=== PATIENT | male | born 1995 | race American Indian/Alaskan Native ===

== ENCOUNTER 2018-09-18 01:59 | Inpatient (IN) | payer MEDICAID ==
[2018-09-18 02:04] VITALS: BMI 27.3
--- NOTE | 2018-09-18 02:15 | ED PDOC ---
Arrival/HPI - General Historian: Patient - History of Present Illness Narrative History of Present Illness (Text): 09/18/18 02:12 22 year old male, with no significant past medical history, who presents to the emergency department agitated and anxious. Patient states he "feels like he;'s going to explode." patient states his anxiety is out of control. Patient is able to reason, but feels like medication would help his current state of aggression. Patient has no physic any complaints at this time. Time/Duration: Prior to Arrival Symptom Onset: Gradual Symptom Course: Unchanged Activities at Onset: Light Context: Home <Darin Thomason - Last Filed: 09/18/18 06:58> <Aman Robbins - Last Filed: 09/18/18 10:39> - General Time Seen by Provider: 09/18/18 02:06 Past Medical History - Provider Review Nursing Documentation Reviewed: Yes - Infectious Disease Hx of Infectious Diseases: None - Cardiac Hx Cardiac Disorders: No Hx Hypertension: Yes (untreated) - Pulmonary Hx Tuberculosis: No - Neurological HX Cerebrovascular Accident: No Hx Seizures: No - Hematological/Oncological Hx Cancer: No - Genitourinary/Gynecological Hx Sexually Transmitted Diseases: No - Psychiatric Hx Depression: Yes Hx Emotional Abuse: No Hx Sexual Abuse: No Hx Substance Use: Yes - Anesthesia Hx Anesthesia: No <Darin Thomason - Last Filed: 09/18/18 06:58> Family/Social History - Physician Review Nursing Documentation Reviewed: Yes Family/Social History: Unknown Family HX Smoking Status: Light Smoker < 10 Cigarettes Daily Hx Alcohol Use: Yes Hx Substance Use: Yes <Darin Thomason - Last Filed: 09/18/18 06:58> Allergies/Home Meds <Darin Thomason - Last Filed: 09/18/18 06:58> <Aman Robbins - Last Filed: 09/18/18 10:39> Allergies/Adverse Reactions: Allergies No Known Allergies Allergy (Verified 09/18/18 02:16) Review of Systems - Physician Review All systems were reviewed & negative as marked: Yes - Review of Systems Constitutional: Normal Eyes: Normal ENT: Normal Respiratory: Normal. absent: SOB, Cough Cardiovascular: Normal. absent: Chest Pain Gastrointestinal: Normal. absent: Abdominal Pain, Diarrhea, Nausea, Vomiting Genitourinary Male: Normal. absent: Dysuria, Frequency, Hematuria Musculoskeletal: Normal. absent: Back Pain, Neck Pain Skin: Normal. absent: Rash Neurological: Normal. absent: Headache, Dizziness Endocrine: Normal Hemo/Lymphatic: Normal Psychiatric: Anxiety <Darin Thomason - Last Filed: 09/18/18 06:58> Physical Exam - Physical Exam Narrative Physical Exam (Text): 09/18/18 02:15 Gen: VS reviewed, alert, well developed, well nourished, nontoxic, mild distress. ENT: normal pharynx. Eye: EOMI, PERRL. Neck: no JVD, supple, no adenopathy. CV: regular rate, regular rhythm, no rubs, no murmur, no gallops, S1, S2, pulses equal and strong. Pulm: no distress, clear to auscultation, no wheeze, no rhonchi, breath sounds equal, no rales. Abd: soft, nontender, no guarding, no rebound, no rigidity, normal bowel sounds. Ext: no edema. Skin: good color, no rash, no cyanosis. Psych: agitated, anxious, responds appropriately to questions, normal affect. Neuro: oriented x 3, CN2-12 intact grossly, motor intact, sensation intact. <Darin Thomason - Last Filed: 09/18/18 06:58> Vital Signs Temp Pulse BP Pulse Ox 09/18/18 02:15 98.6 F 98 H 150/79 22 L <Aman Robbins - Last Filed: 09/18/18 10:39> Medical Decision Making ED Course and Treatment: 09/18/18 02:16 Impression: 22 year old male presents to the emergency department agitated and anxious. Plan: -- Ativan -- Geoden -- Reassess and disposition Progress Notes: 09/18/18 05:22 cxr reviwed from and not necessary to repeat for this psychiatric visit and not indicated for medical evaluation 09/18/18 06:20 patient is medically stable for psych eval, admit, transfer if needed 09/18/18 06:[address] robbins - EKG Interpretation EKG Interpretation (Text): 09/18/18 06:22 0602: sinus sean at 48 bpm, nml qrs, no acute sttw abn Interpreted by ED Physician: Yes - Medication Orders Current Medication Orders: Lorazepam (Ativan) 2 mg IM ONCE ONE; Protocol Stop: 09/18/18 02:09 Discontinued Medications Ziprasidone (Geodon Inj) 20 mg IM STAT STA; Protocol Stop: 09/18/18 02:07 <Darin Thomason - Last Filed: 09/18/18 06:58> ED Course and Treatment: 09/18/18 07:04 Patient was turned over to mo by , waiting for crisis evaluation and disposition. No problems reported overnight. 09/18/18 10:39 Seen and evaluated by crisis and patient will be admitted to the psychiatric floor for schizophrenia. - Lab Interpretations Lab Results: 09/18/18 05:45 09/18/18 05:45 Lab Results 09/18/18 05:45: Alcohol, Quantitative < 10 09/18/18 05:45: Salicylates < 1 L, Acetaminophen < 10.0 L 09/18/18 05:45: Sodium 140, Potassium 3.8, Chloride 104, Carbon Dioxide 26, Anion Gap 13, BUN 9, Creatinine 1.0, Est GFR ( Amer) > 60, Est GFR (Non- Af Amer) > 60, Random Glucose 94, Calcium 9.2, Total Bilirubin 0.4, AST 32, ALT 28, Alkaline Phosphatase 66, Total Protein 7.6, Albumin 4.3, Globulin 3.3, Albumin/Globulin Ratio 1.3 09/18/18 05:45: WBC 8.6, RBC 4.71, Hgb 13.7 L, Hct 39.9 L, MCV 84.7, MCH 29.1, MCHC 34.3, RDW 13.0, Plt Count 226, MPV 9.7, Gran % 54.2, Lymph % (Auto) 31.6, Gaston % (Auto) 12.1 H, Eos % (Auto) 1.9, Baso % (Auto) 0.2, Gran # 4.68, Lymph # (Auto) 2.7, Gaston # (Auto) 1.0 H, Eos # (Auto) 0.2, Baso # (Auto) 0.02 - Medication Orders Current Medication Orders: Discontinued Medications Lorazepam (Ativan) 2 mg IM ONCE ONE; Protocol Stop: 09/18/18 02:09 Last Admin: 09/18/18 02:08 Dose: 2 mg IM Administration Charges Document 09/18/18 02:08 AD (Rec: 09/18/18 02:16 AD [id number]) Injection Site MAR Injection Site Left Deltoid Charges for Administration # of IM Administrations 1 Ziprasidone (Geodon Inj) 20 mg IM STAT STA; Protocol Stop: 09/18/18 02:07 Last Admin: 09/18/18 02:06 Dose: 20 mg IM Administration Charges Document 09/18/18 02:06 AD (Rec: 09/18/18 02:17 AD [id number]) Injection Site MAR Injection Site Right Deltoid Charges for Administration # of IM Administrations 1 <Aman Robbins - Last Filed: 09/18/18 10:39> - Scribe Statement The provider has reviewed the documentation as recorded by the Scribe Kelsie James All medical record entries made by the Scribe were at my direction and personally dictated by me. I have reviewed the chart and agree that the record accurately reflects my personal performance of the history, physical exam, medical decision making, and the department course for this patient. I have also personally directed, reviewed, and agree with the discharge instructions and disposition. <Darin Thomason - Last Filed: 09/18/18 06:58> Disposition/Present on Arrival - Present on Arrival Any Indicators Present on Arrival: No History of DVT/PE: No History of Uncontrolled Diabetes: No Urinary Catheter: No History Surgical Site Infection Following: None - Disposition Have Diagnosis and Disposition been Completed?: Yes <Darin Thomason - Last Filed: 09/18/18 06:58> - Present on Arrival Any Indicators Present on Arrival: No History of DVT/PE: No History of Uncontrolled Diabetes: No Urinary Catheter: No History of Decub. Ulcer: No - Disposition Have Diagnosis and Disposition been Completed?: Yes Disposition Time: 10:39 Patient Plan: Admission <Aman Robbins - Last Filed: 09/18/18 10:39> - Disposition Diagnosis: Psychosis, Schizophrenia Disposition: HOSPITALIZED Patient Problems: Current Active Problems Problem Status Onset Aggressive behavior Acute Condition: FAIR
[2018-09-18 06:02] LABS: BASO # 0.02 K/mm3 (0.0-2.0); BASO % 0.2 % (0.0-3.0); EOS # 0.2 (0.0-0.7); EOS % 1.9 % (1.5-5.0); GRAN # 4.68 (1.4-6.5); GRAN % 54.2 % (50.0-68.0); HEMOGLOBIN 13.7 g/dL (14.0-18.0); LYMPH # 2.7 (1.2-3.4); LYMPH % 31.6 % (22.0-35.0); MEAN CELL VOLUME 84.7 fl (80.0-105.0); MEAN CORPUSCULAR HEMOGLOBIN 29.1 pg (25.0-35.0); MEAN CORPUSCULAR HGB CONC 34.3 g/dl (31.0-37.0); MEAN PLATELET VOLUME 9.7 fl (7.0-11.0); MONO % 12.1 % (1.0-6.0); RBC 4.71 10^6/uL (3.5-6.1); WHITE BLOOD COUNT 8.6 10^3/uL (4.5-11.0)
[2018-09-18 06:08] LABS: ACETAMINOPHEN < 10.0 ug/ml (10.0-20.0); SALICYLATE < 1 mg/dL (2.0-20.0)
[2018-09-18 06:23] LABS: ALB/GLOB RATIO 1.3 (1.1-1.8); ALBUMIN 4.3 g/dL (3.0-4.8); ALT/SGPT 28 U/L (7-56); AST/SGOT 32 U/L (17-59); BLOOD UREA NITROGEN 9 mg/dL (7-21); CALCIUM 9.2 mg/dL (8.4-10.5); GFR NON-AFRICAN AMERICAN > 60
[2018-09-18 08:28] LABS: URINE BILIRUBIN NEGATIVE (NEGATIVE); URINE BLOOD NEGATIVE (NEGATIVE); URINE GLUCOSE (UA) NEGATIVE (NEGATIVE); URINE LEUKOCYTE ESTERASE SMALL Leu/uL (NEGATIVE); URINE PROTEIN NEGATIVE mg/dL (<30 mg/dL); URINE UROBILINOGEN 0.2 E.U./dL (<1 E.U./dL)
[2018-09-18 08:30] LABS: URINE APPEARANCE CLEAR (CLEAR); URINE COLOR YELLOW (YELLOW)
[2018-09-18 08:49] LABS: BARBITURATES, UR NEGATIVE (NEGATIVE); BENZODIAZEPINES, UR NEGATIVE (NEGATIVE); OPIATES, UR NEGATIVE (NEGATIVE); PHENCYCLIDINE, UR NEGATIVE (NEGATIVE); URINE BACTERIA FEW (NEG); URINE EPITHELIAL CELLS 0 - 2 /hpf (0-5); URINE RBC NEGATIVE /hpf (0-2)
[2018-09-18 11:31] VITALS: O2SAT 98
--- NOTE | 2018-09-18 15:34 | CARD ---
APPROVED REPORT Date of service: 09/18/2018 EKG Measurement Heart [id number] <Conclusion> Sinus bradycardia Rightward axis Otherwise normal ECG
[2018-09-18] MEDS ORDERED: Influenza Vaccine 60 mcg/0.5 mL SYR (4YR UP) IM ONE (17:14)
[2018-09-18] MEDS ORDERED: Alum-Mag Hydrox-Simethicone Susp (30 mL) PO PRN ×2 (18:15→18:17)
[2018-09-18 19:42] LABS: HDL CHOLESTEROL 47 mg/dL (29-60)
[2018-09-18 19:52] LABS: LDL CHOLESTEROL 95 mg/dL (0-129)
[2018-09-19 07:55] LABS: BASO # 0.01 K/mm3 (0.0-2.0); BASO % 0.2 % (0.0-3.0); EOS # 0.3 (0.0-0.7); EOS % 4.3 % (1.5-5.0); GRAN # 3.16 (1.4-6.5); GRAN % 51.8 % (50.0-68.0); HEMOGLOBIN 13.4 g/dL (14.0-18.0); LYMPH # 2.2 (1.2-3.4); LYMPH % 35.2 % (22.0-35.0); MEAN CELL VOLUME 86.3 fl (80.0-105.0); MEAN CORPUSCULAR HEMOGLOBIN 28.2 pg (25.0-35.0); MEAN CORPUSCULAR HGB CONC 32.7 g/dl (31.0-37.0); MEAN PLATELET VOLUME 10.2 fl (7.0-11.0); MONO # 0.5 (0.1-0.6); MONO % 8.5 % (1.0-6.0); RBC 4.75 10^6/uL (3.5-6.1); RED CELL DISTRIBUTION WIDTH 13.1 % (11.5-14.5); WHITE BLOOD COUNT 6.1 10^3/uL (4.5-11.0)
[2018-09-19 08:04] LABS: ALB/GLOB RATIO 1.3 (1.1-1.8); ALBUMIN 4.1 g/dL (3.0-4.8); ALT/SGPT 28 U/L (7-56); AST/SGOT 34 U/L (17-59); BLOOD UREA NITROGEN 13 mg/dL (7-21); CALCIUM 9.3 mg/dL (8.4-10.5); GFR NON-AFRICAN AMERICAN > 60
[2018-09-19 08:18] LABS: FREE T4 0.78 ng/dL (0.78-2.19)
--- NOTE | 2018-09-19 10:00 | PCM.PYCHPN ---
Psychiatric Progress Note - Psychiatric Progress Note Patient seen today, length of contact: 35 min Problems Identified/Issues Discussed: Please refer to Dr. Raza's H&P on 08/23/18 for full assessment. Patient was admitted to this unit less than a month ago from 08/22/18-08/23/18. He was discha rged AMA after submitting a 48 hour notice and found not committable by [facility]. Patient was given rx for risperdal 1 mg po TID and trazodone 50 mg HS. Pt is a 22 year old single AA male with history of schizophrenia, [place] [facility] [place] who was BIB EMS to our ER with complaints of depression, anxiety and aggression. During interview in the ER he was found to be disorganized. Mother was contacted for collateral and she confirms that pt hears voices that tell him "negative things" such as "no one loves you, you are no good". He received geodon 20mg and ativan 2mg while in the ER. As noted above, patient saw a psychiatrist last Thursday [place] [facility] [place] and received a script however mother did not know medication names. During our interview at bedside this morning patient indicates that he received a script for the same medications he was [place] [facility] [place]. He also reports that he was compliant with his medications but still continued to feel anxious, dee and depressed. Patient is calm with blunt/flat affect during my questioning. Though he denies current hallucinations he is preoccupied, withdrawn, quiet and guarded. Responses are logical but they are very superficial and verity is questionable due to patient's poor focus and engagement. He remains unpredictable with poor I/J. Diagnostic Results: Schizophrenia Mood Disorder NOS r/o Schizoaffective Disorder Mental Status Examination - Cognitive Function Orientation: Person, Place Memory: Impaired Attention: Poor Concentration: Poor Association: Loose Fund of Knowledge: Poor - Mood Mood: Depressed, Anxious - Affect Affect: Constricted, Blunted, Flat - Speech Speech: Soft - Formal Thought Process Formal Thought Process: Hallucinations, Delusions, Paranoia, Loosening of as sociations - Suicidal Ideation Suicidal Ideation: No - Homicidal Ideation Homicidal Ideation: No Goal/Treatment Plan - Goal/Treatment Plan Need for Continued Stay: Remain at risks for inpatient hospitalization (Patient reports smoking ~2 cigarettes daily), Severe depression anxiety, Discharge may exacerbated symptoms, Severe functional impairment Progress Toward Problem(s) and Goals/Treatment Plan: * group, milieu and supportive tx * Increase to Risperdal 1 mg po AMHS for disorganization. Patient failed outpatient level of care at dose of Risperdal 1 mg HS. * Cogentin 1 mg HS for EPS prophylaxis * Trazodone 50 mg po HS, for depression and off-label for insomnia * Vitals reviewed and noted below: Selected Entries 09/18/18 09/18/18 09/18/18 11:29 18:34 18:58 Temperature 97.9 F Pulse Rate 60 81 80 Respiratory 18 Rate Blood Pressure 115/63 128/66 109/64 * Floor labs noted below: Laboratory Results - last 24 hr 09/18/18 09/19/18 09/19/18 05:45 07:00 07:00 WBC 6.1 D RBC 4.75 Hgb 13.4 L Hct 41.0 L MCV 86.3 MCH 28.2 MCHC 32.7 RDW 13.1 Plt Count 205 MPV 10.2 Gran % 51.8 Lymph % (Auto) 35.2 H Long % (Auto) 8.5 H Eos % (Auto) 4.3 Baso % (Auto) 0.2 Gran # 3.16 Lymph # (Auto) 2.2 Long # (Auto) 0.5 Eos # (Auto) 0.3 Baso # (Auto) 0.01 Sodium 139 Potassium 4.2 Chloride 105 Carbon Dioxide 26 Anion Gap 12 BUN 13 Creatinine 1.0 Est GFR ( Amer) > 60 Est GFR (Non-Af Amer) > 60 Random Glucose 102 Calcium 9.3 Total Bilirubin 0.4 AST 34 ALT 28 Alkaline Phosphatase 70 Total Protein 7.3 Albumin 4.1 Globulin 3.1 Albumin/Globulin Ratio 1.3 Triglycerides 38 Cholesterol 147 LDL Cholesterol Direct 95 HDL Cholesterol 47 Free T4 TSH 3rd Generation 09/19/18 07:00 WBC RBC Hgb Hct MCV MCH MCHC RDW Plt Count MPV Gran % Lymph % (Auto) Long % (Auto) Eos % (Auto) Baso % (Auto) Gran # Lymph # (Auto) Long # (Auto) Eos # (Auto) Baso # (Auto) Sodium Potassium Chloride Carbon Dioxide Anion Gap BUN Creatinine Est GFR ( Amer) Est GFR (Non-Af Amer) Random Glucose Calcium Total Bilirubin AST ALT Alkaline Phosphatase Total Protein Albumin Globulin Albumin/Globulin Ratio Triglycerides Cholesterol LDL Cholesterol Direct HDL Cholesterol Free T4 0.78 TSH 3rd Generation 0.99 ER LABS AND STUDIES NOTED BELOW PLEASE REFER TO DR. BEEBE'S ER REPORT FOR PHYSICAL EXAM AND FINDINGS INCLUDING ROS 09/18/18 05:45: Alcohol, Quantitative < 10 09/18/18 05:45: Salicylates < 1 L, Acetaminophen < 10.0 L 09/18/18 05:45: Sodium 140, Potassium 3.8, Chloride 104, Carbon Dioxide 26, Anion Gap 13, BUN 9, Creatinine 1.0, Est GFR ( Amer) > 60, Est GFR (Non- Af Amer) > 60, Random Glucose 94, Calcium 9.2, Total Bilirubin 0.4, AST 32, ALT 28, Alkaline Phosphatase 66, Total Protein 7.6, Albumin 4.3, Globulin 3.3, Albumin/Globulin Ratio 1.3 09/18/18 05:45: WBC 8.6, RBC 4.71, Hgb 13.7 L, Hct 39.9 L, MCV 84.7, MCH 29.1, MCHC 34.3, RDW 13.0, Plt Count 226, MPV 9.7, Gran % 54.2, Lymph % (Auto) 31.6, Long % (Auto) 12.1 H, Eos % (Auto) 1.9, Baso % (Auto) 0.2, Gran # 4.68, Lymph # (Auto) 2.7, Long # (Auto) 1.0 H, Eos # (Auto) 0.2, Baso # (Auto) 0.02 09/18/18 05:22 cxr reviwed from and not necessary to repeat for this psychiatric visit and not indicated for medical evaluation 09/18/18 06:20 patient is medically stable for psych eval, admit, transfer if needed EKG Interpretation 09/18/18 06:22 0602: sinus sean at 48 bpm, nml qrs, no acute sttw abn Estimated Date of D/C: 09/24/18 - Smoking Cessation Smoking Cessation Initiated: No Reason for not providing: Patient was counseled on morbidity/mortality risks and still refused
--- NOTE | 2018-09-19 14:37 | CON ---
DATE OF CONSULTATION: 09/19/2018 HISTORY OF PRESENT ILLNESS: I saw him on the psychiatric floor. He was resting in bed. I was called to take a look at him medically. He is a 22-year-old man,who presented to the emergency room very agitated, anxious, feels like he is going to explode. His anxiety is out of control. He is looking for medication to help this. He is very aggressive. No other issues. He just does not feel good. He also looks very intense. PAST MEDICAL HISTORY: Hypertension, depression, substance abuse. FAMILY HISTORY: Hypertension in the family. SOCIAL HISTORY: Smokes cigarettes, alcohol, does substance abuse. ALLERGIES: NO KNOWN DRUG ALLERGIES. REVIEW OF SYSTEMS: No acute vision or hearing changes. No sore throat. No chest pain or palpitations. No shortness of breath or cough. No abdominal pain, nausea, vomiting, constipation, or diarrhea. No problems urinating. No neck pain. No back pain. No skin issues that he knows of. No headache or dizziness. PHYSICAL EXAMINATION: GENERAL: He is very anxious. He is very stressed. He looks very tense, looks like he is panicky. VITAL SIGNS: He has 98.6 temp, 98 pulse, 150/79 blood pressure, 22 respiratory rate. HEENT: Head is atraumatic, normocephalic. Extraocular muscles are intact. Throat is moist. NECK: Supple. HEART: Regular rate. LUNGS: Decreased breath sounds, but clear to auscultation bilaterally. ABDOMEN: Soft, nontender. Positive bowel sounds. No guarding. No rebound. No CVA tenderness. EXTREMITIES: No edema. He can move all 4 extremities. SKIN: Intact that I could tell. LYMPHS: Thyroid midline. No palpable appreciable lymphadenopathy. NEUROLOGIC: Cranial nerves II through XII grossly intact. He smiles. He can close his eyes tight. He can stick out his tongue midline. He can squeeze my fingers bilaterally, put his arms over his head. He can follow my finger with an age pattern with his vision. Neurologically, he seems pretty intact. LABORATORY DATA: He had tests done. He had a urine drug screen, which was normal. He had a urine test, which showed small. Sodium 129, potassium 4.2, BUN 13, creatinine 1, GFR is greater than 60, sugar is 102, calcium is 9.3. Total bili is 0.4, AST is 34, ALT is 28, and alk phos 70. Total protein is 7.3. Albumin is 4.1. Triglycerides are 38, cholesterol is 147, LDL is 95, HDL is 47. TSH is 0.99. White count 6.1, hemoglobin 30.4, hematocrit 41, and platelets are 205. ASSESSMENT AND PLAN: His blood pressure, he came in with 150/79, now it is 124/73, was 109/64. We will keep an eye on his blood pressure. He has some anxiety issues. Questionable history of schizophrenia. Hypertension when he came in, it is now normal, we will keep an eye on that. I will see him medically and will follow. Thank you very much for the consult. Hopefully, he will improve. Jorge Crabtree DO
--- NOTE | 2018-09-20 03:27 | PCM.BM ---
<Lio Pradhan - Last Filed: 09/20/18 03:24> Treatment Plan Problems - Problems identified on initial assessmt Social Isolation Date Initiated: 09/18/18 Time Initiated: 17:00 Assessment reference: NA Status: Active Priority: 1 Medication nonadherence Date Initiated: 09/18/18 Time Initiated: 17:00 Assessment reference: NA Status: Active Priority: 2 Command/Auditory Hallucinations Date Initiated: 09/18/18 Time Initiated: 17:00 Assessment reference: NA Status: Active Priority: 3 Visual Hallucinations Date Initiated: 09/18/18 Time Initiated: 17:00 Assessment reference: NA Status: Active Priority: 4 Altered Thought Process Date Initiated: 09/18/18 Time Initiated: 17:00 Assessment reference: NA Status: Active Priority: 5 Impaired Communication Date Initiated: 09/18/18 Time Initiated: 17:00 Assessment reference: NA Status: Active Priority: 6 Chronic Low Self Esteem Date Initiated: 09/18/18 Time Initiated: 17:00 Assessment reference: NA Status: Active Priority: 7 Ineffective Coping Date Initiated: 09/18/18 Time Initiated: 17:00 Assessment reference: NA Status: Active Priority: 8 Self Care Deficit Date Initiated: 09/18/18 Time Initiated: 17:00 Assessment reference: NA Status: Active Priority: 9 Ineffective Family Coping: Compromised Date Initiated: 09/18/18 Time Initiated: 17:00 Assessment reference: NA Status: Active Priority: 10 Self Concept Disturbance Date Initiated: 09/18/18 Time Initiated: 17:00 Assessment reference: NA Status: Active Priority: 11 Defensive Coping Date Initiated: 09/18/18 Time Initiated: 17:00 Assessment reference: NA Status: Active Priority: 12 High Risk: Violence Date Initiated: 09/18/18 Time Initiated: 17:00 Assessment reference: NA Status: Active Priority: 13 Treatment assets and liabiliti Patient Assests: cooperative, self-reliant, ADL independent, negotiates basic needs, good interpersonal skills Patient Liabilities: financial problems, other (Poor insight) - Milieu Protocol Maintain good personal hygiene: daily Encourage regular showers, every shift Remind patient to perform daily oral care, every shift Assist patient to perform ADL's Maintain personal safety: every shift Educate patient to report safety concerns to staff, every shift Monitor environment for contraband/sharps Medication safety: Monitor for expected outcome, potential side effects: every shift, Assess barriers to learning: every shift, Assess readiness for medication education: every shift Milieu Narrative: * group, milieu and supportive tx * Increase to Risperdal 1 mg po AMHS for disorganization. Patient failed outpatient level of care at dose of Risperdal 1 mg HS. * Cogentin 1 mg HS for EPS prophylaxis * Trazodone 50 mg po HS, for depression and off-label for insomnia * Vitals reviewed and noted below: Selected Entries 09/18/18 09/18/18 09/18/18 11:29 18:34 18:58 Temperature 97.9 F Pulse Rate 60 81 80 Respiratory 18 Rate Blood Pressure 115/63 128/66 109/64 * Floor labs noted below: Laboratory Results - last 24 hr 09/18/18 09/19/18 09/19/18 05:45 07:00 07:00 WBC 6.1 D RBC 4.75 Hgb 13.4 L Hct 41.0 L MCV 86.3 MCH 28.2 MCHC 32.7 RDW 13.1 Plt Count 205 MPV 10.2 Gran % 51.8 Lymph % (Auto) 35.2 H [place] % (Auto) 8.5 H Eos % (Auto) 4.3 Baso % (Auto) 0.2 Gran # 3.16 Lymph # (Auto) 2.2 [place] # (Auto) 0.5 Eos # (Auto) 0.3 Baso # (Auto) 0.01 Sodium 139 Potassium 4.2 Chloride 105 Carbon Dioxide 26 Anion Gap 12 BUN 13 Creatinine 1.0 Est GFR ( Amer) > 60 Est GFR (Non-Af Amer) > 60 Random Glucose 102 Calcium 9.3 Total Bilirubin 0.4 AST 34 ALT 28 Alkaline Phosphatase 70 Total Protein 7.3 Albumin 4.1 Globulin 3.1 Albumin/Globulin Ratio 1.3 Triglycerides 38 Cholesterol 147 LDL Cholesterol Direct 95 HDL Cholesterol 47 Free T4 TSH 3rd Generation 09/19/18 07:00 WBC RBC Hgb Hct MCV MCH MCHC RDW Plt Count MPV Gran % Lymph % (Auto) [place] % (Auto) Eos % (Auto) Baso % (Auto) Gran # Lymph # (Auto) [place] # (Auto) Eos # (Auto) Baso # (Auto) Sodium Potassium Chloride Carbon Dioxide Anion Gap BUN Creatinine Est GFR ( Amer) Est GFR (Non-Af Amer) Random Glucose Calcium Total Bilirubin AST ALT Alkaline Phosphatase Total Protein Albumin Globulin Albumin/Globulin Ratio Triglycerides Cholesterol LDL Cholesterol Direct HDL Cholesterol Free T4 0.78 TSH 3rd Generation 0.99 ER LABS AND STUDIES NOTED BELOW PLEASE REFER TO DR. BEEBE'S ER REPORT FOR PHYSICAL EXAM AND FINDINGS INCLUDING ROS 09/18/18 05:45: Alcohol, Quantitative < 10 09/18/18 05:45: Salicylates < 1 L, Acetaminophen < 10.0 L 09/18/18 05:45: Sodium 140, Potassium 3.8, Chloride 104, Carbon Dioxide 26, Anion Gap 13, BUN 9, Creatinine 1.0, Est GFR ( Amer) > 60, Est GFR (Non- Af Amer) > 60, Random Glucose 94, Calcium 9.2, Total Bilirubin 0.4, AST 32, ALT 28, Alkaline Phosphatase 66, Total Protein 7.6, Albumin 4.3, Globulin 3.3, Albumin/Globulin Ratio 1.3 09/18/18 05:45: WBC 8.6, RBC 4.71, Hgb 13.7 L, Hct 39.9 L, MCV 84.7, MCH 29.1, MCHC 34.3, RDW 13.0, Plt Count 226, MPV 9.7, Gran % 54.2, Lymph % (Auto) 31.6, [place] % (Auto) 12.1 H, Eos % (Auto) 1.9, Baso % (Auto) 0.2, Gran # 4.68, Lymph # (Auto) 2.7, [place] # (Auto) 1.0 H, Eos # (Auto) 0.2, Baso # (Auto) 0.02 09/18/18 05:22 cxr reviwed from and not necessary to repeat for this psychiatric visit and not indicated for medical evaluation 09/18/18 06:20 patient is medically stable for psych eval, admit, transfer if needed EKG Interpretation 09/18/18 06:22 0602: sinus sean at 48 bpm, nml qrs, no acute sttw abn Family Contact Family involvement: Family/SO is involved Family contact: Patient agrees to contact Discharge/Continuing Care - Education Needs Education Needs: Patient Medication, Patient Diagnosis/Disease Process, Patient Coping Skills, Patient Anger Management skills, Patient Placement options, Patient Community resources, Patient Activities of Daily Living, Patient Pain, Patient Nutrition, Patient Uses of Medical Equipment, Patient Health Practices/Safety, Patient Personal Hygiene/Grooming, Patient Aftercare Safety Plan - Discharge Discharge Criteria: Tolerates medication w/o severe side effects - Treatment Team Participation Patient/Family/SO Statement: * group, milieu and supportive tx * Increase to Risperdal 1 mg po AMHS for disorganization. Patient failed outpatient level of care at dose of Risperdal 1 mg HS. * Cogentin 1 mg HS for EPS prophylaxis * Trazodone 50 mg po HS, for depression and off-label for insomnia * Vitals reviewed and noted below: Selected Entries 09/18/18 09/18/18 09/18/18 11:29 18:34 18:58 Temperature 97.9 F Pulse Rate 60 81 80 Respiratory 18 Rate Blood Pressure 115/63 128/66 109/64 * Floor labs noted below: Laboratory Results - last 24 hr 09/18/18 09/19/18 09/19/18 05:45 07:00 07:00 WBC 6.1 D RBC 4.75 Hgb 13.4 L Hct 41.0 L MCV 86.3 MCH 28.2 MCHC 32.7 RDW 13.1 Plt Count 205 MPV 10.2 Gran % 51.8 Lymph % (Auto) 35.2 H [place] % (Auto) 8.5 H Eos % (Auto) 4.3 Baso % (Auto) 0.2 Gran # 3.16 Lymph # (Auto) 2.2 [place] # (Auto) 0.5 Eos # (Auto) 0.3 Baso # (Auto) 0.01 Sodium 139 Potassium 4.2 Chloride 105 Carbon Dioxide 26 Anion Gap 12 BUN 13 Creatinine 1.0 Est GFR ( Amer) > 60 Est GFR (Non-Af Amer) > 60 Random Glucose 102 Calcium 9.3 Total Bilirubin 0.4 AST 34 ALT 28 Alkaline Phosphatase 70 Total Protein 7.3 Albumin 4.1 Globulin 3.1 Albumin/Globulin Ratio 1.3 Triglycerides 38 Cholesterol 147 LDL Cholesterol Direct 95 HDL Cholesterol 47 Free T4 TSH 3rd Generation 09/19/18 07:00 WBC RBC Hgb Hct MCV MCH MCHC RDW Plt Count MPV Gran % Lymph % (Auto) [place] % (Auto) Eos % (Auto) Baso % (Auto) Gran # Lymph # (Auto) [place] # (Auto) Eos # (Auto) Baso # (Auto) Sodium Potassium Chloride Carbon Dioxide Anion Gap BUN Creatinine Est GFR ( Amer) Est GFR (Non-Af Amer) Random Glucose Calcium Total Bilirubin AST ALT Alkaline Phosphatase Total Protein Albumin Globulin Albumin/Globulin Ratio Triglycerides Cholesterol LDL Cholesterol Direct HDL Cholesterol Free T4 0.78 TSH 3rd Generation 0.99 ER LABS AND STUDIES NOTED BELOW PLEASE REFER TO DR. BEEBE'S ER REPORT FOR PHYSICAL EXAM AND FINDINGS INCLUDING ROS 09/18/18 05:45: Alcohol, Quantitative < 10 09/18/18 05:45: Salicylates < 1 L, Acetaminophen < 10.0 L 09/18/18 05:45: Sodium 140, Potassium 3.8, Chloride 104, Carbon Dioxide 26, Anion Gap 13, BUN 9, Creatinine 1.0, Est GFR ( Amer) > 60, Est GFR (Non- Af Amer) > 60, Random Glucose 94, Calcium 9.2, Total Bilirubin 0.4, AST 32, ALT 28, Alkaline Phosphatase 66, Total Protein 7.6, Albumin 4.3, Globulin 3.3, Albumin/Globulin Ratio 1.3 09/18/18 05:45: WBC 8.6, RBC 4.71, Hgb 13.7 L, Hct 39.9 L, MCV 84.7, MCH 29.1, MCHC 34.3, RDW 13.0, Plt Count 226, MPV 9.7, Gran % 54.2, Lymph % (Auto) 31.6, [place] % (Auto) 12.1 H, Eos % (Auto) 1.9, Baso % (Auto) 0.2, Gran # 4.68, Lymph # (Auto) 2.7, [place] # (Auto) 1.0 H, Eos # (Auto) 0.2, Baso # (Auto) 0.02 09/18/18 05:22 cxr reviwed from and not necessary to repeat for this psychiatric visit and not indicated for medical evaluation 09/18/18 06:20 patient is medically stable for psych eval, admit, transfer if needed EKG Interpretation 09/18/18 06:22 0602: sinus sean at 48 bpm, nml qrs, no acute sttw abn <Padmini Dela Cruz - Last Filed: 09/21/18 08:36> Family Contact Family involvement: Famliy/SO not involved - Goals for Treatment Patient goals for treatment: "To learn how to cope with my feelings."
--- NOTE | 2018-09-20 13:36 | PCM.PYCHPN ---
Psychiatric Progress Note - Psychiatric Progress Note Patient seen today, length of contact: 35 min Patient Chief Complaint: "I was feeling overwhelmed, even though I was not overwhelmed, if you know what I mean, I want everything to stop, this is what I mean by suicide" Problems Identified/Issues Discussed: Suicide/ homicide prevention, past psychiatric h/o, current psychiatric symptoms, medical problems, risk/benefits and alternatives of medications, medi cations compliance, coping strategies, substance abuse h/o, relapse prevention, importance of follow up with psychiatrist and therapist, discharge plan. Medical Problems: pt is healthy pt was seen by medical team in ED Diagnostic Results: 09/19/18 07:00 09/19/18 07:00 Lab Results 09/19/18 07:00: RPR Nonreactive 09/19/18 07:00: Free T4 0.78, TSH 3rd Generation 0.99 09/19/18 07:00: Sodium 139, Potassium 4.2, Chloride 105, Carbon Dioxide 26, Anion Gap 12, BUN 13, Creatinine 1.0, Est GFR ( Amer) > 60, Est GFR (Non- Af Amer) > 60, Random Glucose 102, Calcium 9.3, Total Bilirubin 0.4, AST 34, ALT 28, Alkaline Phosphatase 70, Total Protein 7.3, Albumin 4.1, Globulin 3.1, Albumin/Globulin Ratio 1.3 09/19/18 07:00: WBC 6.1 D, RBC 4.75, Hgb 13.4 L, Hct 41.0 L, MCV 86.3, MCH 28.2, MCHC 32.7, RDW 13.1, Plt Count 205, MPV 10.2, Gran % 51.8, Lymph % (Auto) 35.2 H, [place] % (Auto) 8.5 H, Eos % (Auto) 4.3, Baso % (Auto) 0.2, Gran # 3.16, Lymph # (Auto) 2.2, [place] # (Auto) 0.5, Eos # (Auto) 0.3, Baso # (Auto) 0.01 09/18/18 08:10: Urine Opiates Screen Negative, Urine Methadone Screen Negative, Ur Barbiturates Screen Negative, Ur Phencyclidine Scrn Negative, Ur Amphetamines Screen Negative, U Benzodiazepines Scrn Negative, U Oth Cocaine Metabols N egative, U Cannabinoids Screen Negative 09/18/18 08:10: Urine Color Yellow, Urine Appearance Clear, Urine pH 6.0, Ur Specific [place] 1.020, Urine Protein Negative, Urine Glucose (UA) Negative, Urine Ketones Negative, Urine Blood Negative, Urine Nitrate Negative, Urine Bilirubin Negative, Urine Urobilinogen 0.2, Ur Leukocyte Esterase Small H, Urine RBC Negative, Urine WBC 10 - 15, Ur Epithelial Cells 0 - 2, Urine Bacteria Few 09/18/18 05:45: Hemoglobin A1c 5.1 09/18/18 05:45: Triglycerides 38, Cholesterol 147, LDL Cholesterol Direct 95, HDL Cholesterol 47 09/18/18 05:45: Alcohol, Quantitative < 10 09/18/18 05:45: Salicylates < 1 L, Acetaminophen < 10.0 L 09/18/18 05:45: Sodium 140, Potassium 3.8, Chloride 104, Carbon Dioxide 26, Anion Gap 13, BUN 9, Creatinine 1.0, Est GFR ( Amer) > 60, Est GFR (Non- Af Amer) > 60, Random Glucose 94, Calcium 9.2, Total Bilirubin 0.4, AST 32, ALT 28, Alkaline Phosphatase 66, Total Protein 7.6, Albumin 4.3, Globulin 3.3, Albumin/Globulin Ratio 1.3 09/18/18 05:45: WBC 8.6, RBC 4.71, Hgb 13.7 L, Hct 39.9 L, MCV 84.7, MCH 29.1, MCHC 34.3, RDW 13.0, Plt Count 226, MPV 9.7, Gran % 54.2, Lymph % (Auto) 31.6, [place] % (Auto) 12.1 H, Eos % (Auto) 1.9, Baso % (Auto) 0.2, Gran # 4.68, Lymph # (Auto) 2.7, [place] # (Auto) 1.0 H, Eos # (Auto) 0.2, Baso # (Auto) 0.02 Vital Signs Temp Pulse Resp BP Pulse Ox 09/20/18 07:20 98.5 F 53 L 18 109/50 L 09/19/18 16:21 76 118/64 09/19/18 07:21 97.7 F 64 20 124/73 09/18/18 18:58 80 109/64 09/18/18 18:34 81 128/66 09/18/18 11:29 97.9 F 60 18 115/63 98 09/18/18 02:15 98.6 F 98 H 150/79 22 L DSM 5 Symptoms Update: Pt is well known to this data analyst report writer/unit from the previous psych admission less than a month ago from 08/22/18-08/23/18. He was discharged AMA after submitting a 48 hour notice and found not committable by [facility]. Patient was given rx for risperdal 1 mg po TID and trazodone 50 mg HS. pt was seen at the treatment team meeting, pt presented to be disorganized, circumstantial and tangential. good personal hygiene, good ADLs, pt was superficially cooperative. pt seems to be unreliable historian due to his disorganized thoughts. Pt was referred by psychiatrist last Chin who was BIB EMS to our ER with complaints of depression, anxiety and aggression. During interview in the ER he was found to be disorganized. Mother was contacted for collateral and she confir ms that pt hears voices that tell him "negative things" such as "no one loves you, you are no good". He received geodon 20mg and ativan 2mg while in the ER. As noted above, patient saw a psychiatrist last Thursday at [facility] and received a script however mother did not know medication names. During our interview at the treatment team meeting pt said "I was feeling overwhelmed, even though I was not overwhelmed, I feel I could have better, I feel like I cannot reach my potential". He remains unpredictable with poor I/J. pt tolerates meds well, no side effects observed or reported. AIMS 0, no EPS. risperdal increased, wellbutrin started. Diagnostic Results: Schizophrenia Mood Disorder NOS r/o Schizoaffective Disorder Medication Change: Yes (risperdal increased and wellbutrin started.) Medical Record Reviewed: Yes Consults ordered or reviewed: medical consult was done in ED. pt reported being healthy Mental Status Examination - Cognitive Function Orientation: Person, Place Memory: Impaired Attention: Poor Concentration: Poor Association: Loose Fund of Knowledge: Poor - Mood Mood: Depressed, Anxious - Affect Affect: Constricted, Blunted, Flat - Speech Speech: Soft - Formal Thought Process Formal Thought Process: Hallucinations, Delusions, Paranoia, Loosening of associations - Suicidal Ideation Suicidal Ideation: No - Homicidal Ideation Homicidal Ideation: No Goal/Treatment Plan - Goal/Treatment Plan Need for Continued Stay: Remain at risks for inpatient hospitalization (Patient reports smoking ~2 cigarettes daily), Severe depression anxiety, Discharge may exacerbated symptoms, Severe functional impairment Progress Toward Problem(s) and Goals/Treatment Plan: group, milieu and supportive tx Increase to Risperdal 1 mg po tid for disorganization. Patient failed outpatient level of care at dose of Risperdal 1 mg HS. Cogentin 1 mg HS for EPS prophylaxis Trazodone 50 mg po HS, for depression and off-label for insomnia wellbutrin for concentration and depression SW evaluation collaterals from family Pt was educated about risk/benefits and alternatives of medications, coping strategies (safety plan, suicide prevention), relapse prevention, importance of follow up with psychiatrist and therapist, stay away from drugs/alcohol/smoking. Estimated Date of D/C: 09/24/18
--- NOTE | 2018-09-20 13:54 | PN ---
DATE: 09/20/2018 SUBJECTIVE: I saw him resting comfortably in bed. Overall, he tells me feeling okay. No acute problems this morning. He is on Cogentin, Desyrel, Maalox, Risperdal, and Tylenol. PHYSICAL EXAMINATION: VITAL SIGNS: 98.5 temperature, 53 pulse, 109/50 blood pressure, 18 respiratory rate. HEENT: Head atraumatic, normocephalic. HEART: Regular rate and rhythm. LUNGS: Decreased breath sounds, but clear. ABDOMEN: Soft. EXTREMITIES: No edema. He is eating a little bit. He has a 6.1 white count, 30.4 hemoglobin, 205 platelets. 139 sodium, potassium 4.2, BUN 30, creatinine , hemoglobin A1c is 5.1, calcium is 9.3, AST is 34, ALT is 20, alk phos 70. TSH is good at 0.99. Urine was clear. Toxicology was clear and nonreactive RPR. His blood pressure did well after the first day, it is now flat.. We will continue to watch medically, continue with aggressive psychiatric care, hopefully will improve. Jorge Crabtree DO MTDD
--- NOTE | 2018-09-21 11:49 | PN ---
DATE: 09/21/2018 SUBJECTIVE: I saw him resting comfortably in the psychiatric floor in bed. He is actually doing better, I believe on the other day. He is talking to me better. His face is brighter and smiling. He is eating well, comfortable. I think he is starting to turn a corner mentally. MEDICATIONS: He is on Cogentin, Desyrel, Maalox, Risperdal, Tylenol and Wellbutrin. PHYSICAL EXAMINATION: VITAL SIGNS: He has a 97.7 temperature, 62 pulse, 120/68 blood pressure, 20 respiratory rate. HEENT: Head is atraumatic, normocephalic. HEART: Regular rate. LUNGS: Clear to auscultation. ABDOMEN: Soft. EXTREMITIES: No edema. Last labs on the floor, he did well. Thyroid is good. ASSESSMENT AND PLAN: I do think he is starting to turn a corner and improve. He has been seen by Psychiatry. 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 I think he is starting to improve mentally and his blood pressure is good. Jorge Crabtree DO
--- NOTE | 2018-09-21 14:34 | PCM.PYCHPN ---
Psychiatric Progress Note - Psychiatric Progress Note Patient seen today, length of contact: 35 min Patient Chief Complaint: "I want to be feeling better and be not overwhelmed, by the way will you prescribe anything for overwhelming feelings?" Problems Identified/Issues Discussed: Suicide/ homicide prevention, past psychiatric h/o, current psychiatric sympto ms, medical problems, risk/benefits and alternatives of medications, medications compliance, coping strategies, substance abuse h/o, relapse prevention, importance of follow up with psychiatrist and therapist, discharge plan. Medical Problems: pt is healthy pt was seen by medical team in ED Diagnostic Results: 09/19/18 07:00 09/19/18 07:00 Lab Results 09/19/18 07:00: RPR Nonreactive 09/19/18 07:00: Free T4 0.78, TSH 3rd Generation 0.99 09/19/18 07:00: Sodium 139, Potassium 4.2, Chloride 105, Carbon Dioxide 26, Anion Gap 12, BUN 13, Creatinine 1.0, Est GFR ( Amer) > 60, Est GFR (Non- Af Amer) > 60, Random Glucose 102, Calcium 9.3, Total Bilirubin 0.4, AST 34, ALT 28, Alkaline Phosphatase 70, Total Protein 7.3, Albumin 4.1, Globulin 3.1, Albumin/Globulin Ratio 1.3 09/19/18 07:00: WBC 6.1 D, RBC 4.75, Hgb 13.4 L, Hct 41.0 L, MCV 86.3, MCH 28.2, MCHC 32.7, RDW 13.1, Plt Count 205, MPV 10.2, Gran % 51.8, Lymph % (Auto) 35.2 H, [place] % (Auto) 8.5 H, Eos % (Auto) 4.3, Baso % (Auto) 0.2, Gran # 3.16, Lymph # (Auto) 2.2, [place] # (Auto) 0.5, Eos # (Auto) 0.3, Baso # (Auto) 0.01 09/18/18 08:10: Urine Opiates Screen Negative, Urine Methadone Screen Negative, Ur Barbiturates Screen Negative, Ur Phencyclidine Scrn Negative, Ur Amphetamines Screen Negative, U Benzodiazepines Scrn Negative, U Oth Cocaine Metabols Negative, U Cannabinoids Screen Negative 09/18/18 08:10: Urine Color Yellow, Urine Appearance Clear, Urine pH 6.0, Ur Specific [place] 1.020, Urine Protein Negative, Urine Glucose (UA) Negative, Urine Ketones Negative, Urine Blood Negative, Urine Nitrate Negative, Urine Bilirubin Negative, Urine Urobilinogen 0.2, Ur Leukocyte Esterase Small H, Urine RBC Negative, Urine WBC 10 - 15, Ur Epithelial Cells 0 - 2, Urine Bacteria Few 09/18/18 05:45: Hemoglobin A1c 5.1 09/18/18 05:45: Triglycerides 38, Cholesterol 147, LDL Cholesterol Direct 95, HDL Cholesterol 47 09/18/18 05:45: Alcohol, Quantitative < 10 09/18/18 05:45: Salicylates < 1 L, Acetaminophen < 10.0 L 09/18/18 05:45: Sodium 140, Potassium 3.8, Chloride 104, Carbon Dioxide 26, Anion Gap 13, BUN 9, Creatinine 1.0, Est GFR ( Amer) > 60, Est GFR (Non- Af Amer) > 60, Random Glucose 94, Calcium 9.2, Total Bilirubin 0.4, AST 32, ALT 28, Alkaline Phosphatase 66, Total Protein 7.6, Albumin 4.3, Globulin 3.3, Albumin/Globulin Ratio 1.3 09/18/18 05:45: WBC 8.6, RBC 4.71, Hgb 13.7 L, Hct 39.9 L, MCV 84.7, MCH 29.1, MCHC 34.3, RDW 13.0, Plt Count 226, MPV 9.7, Gran % 54.2, Lymph % (Auto) 31.6, [place] % (Auto) 12.1 H, Eos % (Auto) 1.9, Baso % (Auto) 0.2, Gran # 4.68, Lymph # (Auto) 2.7, [place] # (Auto) 1.0 H, Eos # (Auto) 0.2, Baso # (Auto) 0.02 Vital Signs Temp Pulse Resp BP Pulse Ox 09/20/18 07:20 98.5 F 53 L 18 109/50 L 09/19/18 16:21 76 118/64 09/19/18 07:21 97.7 F 64 20 124/73 09/18/18 18:58 80 109/64 09/18/18 18:34 81 128/66 09/18/18 11:29 97.9 F 60 18 115/63 98 09/18/18 02:15 98.6 F 98 H 150/79 22 L DSM 5 Symptoms Update: Pt is well known to this entry writer/unit from the previous psych admission less than a month ago from 08/22/18-08/23/18. He was discharged AMA after submitting a 48 hour notice and found not committable by [facility]. Patient was given rx for risperdal 1 mg po TID and trazodone 50 mg HS. pt was seen today next to the nursing station, pt presented to be disorganized, circumstantial and tangential. good personal hygiene, good ADLs. pt has some positive changes, pt smiled to this entry writer, thought process is better organized. pt reported that "I want to be feeling better and be not overwhelmed, by the way will you prescribe anything for overwhelming feelings?", when was asked to clarify his overwhelming feeling pt went tangent... He remains unpredictable with poor I/J. pt tolerates meds well, no side effects observed or reported. AIMS 0, no EPS. risperdal increased, wellbutrin started. Diagnostic Results: Schizophrenia Mood Disorder NOS r/o Schizoaffective Disorder Medication Change: Yes (vistaril) Medical Record Reviewed: Yes Mental Status Examination - Cognitive Function Orientation: Person (He), Place Memory: Impaired Attention: Poor Concentration: Poor Association: Loose Fund of Knowledge: Poor - Mood Mood: Depressed, Anxious - Affect Affect: Constricted, Blunted, Flat - Speech Speech: Soft - Formal Thought Process Formal Thought Process: Hallucinations, Delusions, Paranoia, Loosening of associations - Suicidal Ideation Suicidal Ideation: No - Homicidal Ideation Homicidal Ideation: No Goal/Treatment Plan - Goal/Treatment Plan Need for Continued Stay: Remain at risks for inpatient hospitalization (Patient reports smoking ~2 cigarettes daily), Severe depression anxiety, Discharge may exacerbated symptoms, Severe functional impairment Progress Toward Problem(s) and Goals/Treatment Plan: group, milieu and supportive tx Risperdal 1 mg po tid for disorganization. Patient failed outpatient level of care at dose of Risperdal 1 mg HS. Cogentin 1 mg HS for EPS prophylaxis Trazodone 50 mg po HS, for depression and off-label for insomnia wellbutrin for concentration and depression vistaril 25mg po tid for anxiety SW evaluation collaterals from family Pt was educated about risk/benefits and alternatives of medications, coping strategies (safety plan, suicide prevention), relapse prevention, importance of follow up with psychiatrist and therapist, stay away from drugs/alcohol/smoking. Estimated Date of D/C: 09/24/18
[2018-09-21] MEDS ORDERED: Influenza Vaccine 60 mcg/0.5 mL SYR (4YR UP) IM ONE (15:21)
--- NOTE | 2018-09-22 08:41 | PN ---
DATE: 09/22/2018 SUBJECTIVE: I saw him in the Psychiatric Unit. He is actually out of bed in the day room. He is talking. He is smiling. He is doing much better. He is on Cogentin, Desyrel, Maalox, Risperdal, Tylenol, Vistaril and Wellbutrin. It is the first time I have seen him out of his bed, the first time I have seen him smiling, talking nicely. PHYSICAL EXAMINATION: VITAL SIGNS: He has a 97.8 temp, 58 pulse, 127/77 blood pressure, 20 respiratory rate. His blood pressure is good. HEENT: Head is atraumatic, normocephalic. HEART: Regular rate. LUNGS: Clear to auscultation. ABDOMEN: Soft. EXTREMITIES: No edema. I think he is doing much better than when he came in. LABORATORY DATA: His labs on 09/19/2018, he did well. ASSESSMENT AND PLAN: I do think he is starting to improve. He is telling me that he will be discharged tomorrow and I think he is on the right game plan. He works and goes to school. He knows what he wants to do. This is good. I encouraged him to eat, participate, follow psychiatric orders. We will follow checking his blood pressure. Rai Baires who I think is improved. Jorge Crabtree DO
--- NOTE | 2018-09-22 16:16 | PCM.PYCHPN ---
Psychiatric Progress Note - Psychiatric Progress Note Patient seen today, length of contact: 30min Patient Chief Complaint: "I feel better" Problems Identified/Issues Discussed: Suicide/ homicide prevention, past psychiatric h/o, current psychiatric symptoms, medical problems, risk/benefits and alternatives of medications, medications compliance, coping strategies, substance abuse h/o, relapse prevention, importance of follow up with psychiatrist and therapist, discharge plan. Medical Problems: pt is healthy pt was seen by medical team in ED Diagnostic Results: 09/19/18 07:00 09/19/18 07:00 Lab Results 09/19/18 07:00: RPR Nonreactive 09/19/18 07:00: Free T4 0.78, TSH 3rd Generation 0.99 09/19/18 07:00: Sodium 139, Potassium 4.2, Chloride 105, Carbon Dioxide 26, Anion Gap 12, BUN 13, Creatinine 1.0, Est GFR ( Amer) > 60, Est GFR (Non- Af Amer) > 60, Random Glucose 102, Calcium 9.3, Total Bilirubin 0.4, AST 34, ALT 28, Alkaline Phosphatase 70, Total Protein 7.3, Albumin 4.1, Globulin 3.1, Albumin/Globulin Ratio 1.3 09/19/18 07:00: WBC 6.1 D, RBC 4.75, Hgb 13.4 L, Hct 41.0 L, MCV 86.3, MCH 28.2, MCHC 32.7, RDW 13.1, Plt Count 205, MPV 10.2, Gran % 51.8, Lymph % (Auto) 35.2 H, [place] % (Auto) 8.5 H, Eos % (Auto) 4.3, Baso % (Auto) 0.2, Gran # 3.16, Lymph # (Auto) 2.2, [place] # (Auto) 0.5, Eos # (Auto) 0.3, Baso # (Auto) 0.01 09/18/18 08:10: Urine Opiates Screen Negative, Urine Methadone Screen Negative, Ur Barbiturates Screen Negative, Ur Phencyclidine Scrn Negative, Ur Amphetamines Screen Negative, U Benzodiazepines Scrn Negative, U Oth Cocaine Metabols Negative, U Cannabinoids Screen Negative 09/18/18 08:10: Urine Color Yellow, Urine Appearance Clear, Urine pH 6.0, Ur Specific [place] 1.020, Urine Protein Negative, Urine Glucose (UA) Negative, Urine Ketones Negative, Urine Blood Negative, Urine Nitrate Negative, Urine Bilirubin Negative, Urine Urobilinogen 0.2, Ur Leukocyte Esterase Small H, Urine RBC Negative, Urine WBC 10 - 15, Ur Epithelial Cells 0 - 2, Urine Bacteria Few 09/18/18 05:45: Hemoglobin A1c 5.1 09/18/18 05:45: Triglycerides 38, Cholesterol 147, LDL Cholesterol Direct 95, HDL Cholesterol 47 09/18/18 05:45: Alcohol, Quantitative < 10 09/18/18 05:45: Salicylates < 1 L, Acetaminophen < 10.0 L 09/18/18 05:45: Sodium 140, Potassium 3.8, Chloride 104, Carbon Dioxide 26, Anion Gap 13, BUN 9, Creatinine 1.0, Est GFR ( Amer) > 60, Est GFR (Non- Af Amer) > 60, Random Glucose 94, Calcium 9.2, Total Bilirubin 0.4, AST 32, ALT 28, Alkaline Phosphatase 66, Total Protein 7.6, Albumin 4.3, Globulin 3.3, Albumin/Globulin Ratio 1.3 09/18/18 05:45: WBC 8.6, RBC 4.71, Hgb 13.7 L, Hct 39.9 L, MCV 84.7, MCH 29.1, MCHC 34.3, RDW 13.0, Plt Count 226, MPV 9.7, Gran % 54.2, Lymph % (Auto) 31.6, [place] % (Auto) 12.1 H, Eos % (Auto) 1.9, Baso % (Auto) 0.2, Gran # 4.68, Lymph # (Auto) 2.7, [place] # (Auto) 1.0 H, Eos # (Auto) 0.2, Baso # (Auto) 0.02 Vital Signs Temp Pulse Resp BP Pulse Ox 09/20/18 07:20 98.5 F 53 L 18 109/50 L 09/19/18 16:21 76 118/64 09/19/18 07:21 97.7 F 64 20 124/73 09/18/18 18:58 80 109/64 09/18/18 18:34 81 128/66 09/18/18 11:29 97.9 F 60 18 115/63 98 09/18/18 02:15 98.6 F 98 H 150/79 22 L DSM 5 Symptoms Update: Pt is well known to this short story writer/unit from the previous psych admission less than a month ago from 08/22/18-08/23/18. He was discharged AMA after submitting a 48 hour notice and found not committable by [facility]. Patient was given rx for risperdal 1 mg po TID and trazodone 50 mg HS. pt was seen today next to the nursing station, pt presented to be more organized, reported "to feel better, I am ready for discharge tomorrow". good personal hygiene, good ADLs. pt has some positive changes, pt smiled to this short story writer, thought process is better organized. pt reported that his anxiety "better", reported to have good appetite and sleep. impulses are well controlled. pt tolerates meds well, no side effects observed or reported. AIMS 0, no EPS. As per staff patient is in good behavioral control, attends meetings, no agitation, no aggression. Diagnostic Results: Schizophrenia Mood Disorder NOS r/o Schizoaffective Disorder Medication Change: No (adjusted yesterday) Medical Record Reviewed: Yes Mental Status Examination - Cognitive Function Orientation: Person (He), Place Memory: Impaired Attention: Poor (better) Concentration: Poor (better) Association: Loose (better) Fund of Knowledge: Poor (better) - Mood Mood: Depressed ("I feel better") - Affect Affect: Constricted (more reactive, mood congruent) - Speech Speech: Appropriate - Formal Thought Process Formal Thought Process: Hallucinations (denied), Delusions (denied), Paranoia (denied), Loosening of associations (chornic) - Suicidal Ideation Suicidal Ideation: No - Homicidal Ideation Homicidal Ideation: No Goal/Treatment Plan - Goal/Treatment Plan Need for Continued Stay: Remain at risks for inpatient hospitalization (Patient reports smoking ~2 cigarettes daily), Severe depression anxiety, Discharge may exacerbated symptoms, Severe functional impairment Progress Toward Problem(s) and Goals/Treatment Plan: group, milieu and supportive tx Risperdal 1 mg po tid for disorganization. Patient failed outpatient level of care at dose of Risperdal 1 mg HS. Cogentin 1 mg HS for EPS prophylaxis Trazodone 50 mg po HS, for depression and off-label for insomnia wellbutrin for concentration and depression vistaril 25mg po tid for anxiety SW evaluation collaterals from family Pt was educated about risk/benefits and alternatives of medications, coping strategies (safety plan, suicide prevention), relapse prevention, importance of follow up with psychiatrist and therapist, stay away from drugs/alcohol/smoking. Estimated Date of D/C: 09/23/18
[2018-09-23 11:08] VITALS: BP 123/72; PULSE 68; RESP 17; TEMP 97.2
--- NOTE | 2018-09-23 11:42 | PN ---
DATE: 09/23/2018 SUBJECTIVE: I saw him in the psychiatric floor. He is doing well, he is eating well. He is walking around well. He is participating. He feels a lot better. He is smiling. He is in good spirits. He is going to go back to work, go back to school. I think he is in a good place. I understand he might be discharged today. I feel it is good ideas. He is on Cogentin, Desyrel, Maalox, Risperdal, Tylenol, Vistaril and Wellbutrin and definitely he improved while he has been in the psychiatric floor. PHYSICAL EXAMINATION: VITAL SIGNS: He has a 97.9 temp, 58 pulse, 116/71 blood pressure, 20 respiratory rate. HEENT: His head is atraumatic, normocephalic. HEART: Regular rate. LUNGS: Clear to auscultation. ABDOMEN: Soft. EXTREMITIES: No edema. LABORATORY DATA: He had blood test on the 4th, he did very well. He will follow up on the outpatient with his doctors. Hopefully, he will continue with the medication, not run out and then go back to work in school and continue his goals. Rai Baires who I think really improved while he was here psychiatrically jerome. He is here for schizophrenia, hypertension and anxiety. Jorge Crabtree DO
--- NOTE | 2018-09-23 13:16 | PCM.PYCHDC ---
Mental Status Examination - Mental Status Examination Orientation: Person, Place, Situation Memory: Intact Mood: Neutral Affect: Broad Speech: Appropriate Attention: WNL Concentration: WNL Association: WNL Fund of Knowledge: WNL Formal Thought Process: No Impairment Description of patient's judgement and insight: Improved, Fair insight and judgement Psychotic Thoughts and Behaviors: Denies any perceptual disturbance including hallucinations or paranoia. Delusions were note elicited Suicidal Ideation: No Current Homicidal Ideation?: No Discharge Summary - Discharge Note Reason for Hospitalization: Please refer to Dr. Raza's H&P on 08/23/18 for full assessment. Patient was admitted to this unit less than a month ago from 08/22/18-08/23/18. He was discharged AMA after submitting a 48 hour notice and found not committable by [facility]. Patient was given rx for risperdal 1 mg po TID and trazodone 50 mg HS. Pt is a 22 year old single AA male with history of schizophrenia, recent f/u at [facility] with a male psychiatrist last Thursday who was BIB EMS to our ER with complaints of depression, anxiety and aggression. During interview in the ER he was found to be disorganized. Mother was contacted for collateral and she confirms that pt hears voices that tell him "negative things" such as "no one loves you, you are no good". He received geodon 20mg and ativan 2mg while in the ER. As noted above, patient saw a psychiatrist last Thursday at [facility] outpt and received a script however mother did not know medication names. During our interview at bedside this morning patient indicates that he received a script for the same medications he was discharged on from [facility] last month. He also reports that he was compliant with his medications but still continued to feel anxious, dee and depressed. Patient is calm with blunt/flat affect during my questioning. Though he denies current hallucinations he is preoccupied, withdrawn, quiet and guarded. Responses are logical but they are very superficial and verity is questionable due to patient's poor focus and engagement. He remains unpredictable with poor I/J. Psychiatric History (includes Medical, Family, Personal Hx): SEE HPI Laboratory Data: Laboratory Tests 09/18/18 09/18/18 09/18/18 05:45 05:45 05:45 WBC 8.6 RBC 4.71 Hgb 13.7 L Hct 39.9 L MCV 84.7 MCH 29.1 MCHC 34.3 RDW 13.0 Plt Count 226 MPV 9.7 Gran % 54.2 Lymph % (Auto) 31.6 [place] % (Auto) 12.1 H Eos % (Auto) 1.9 Baso % (Auto) 0.2 Gran # 4.68 Lymph # (Auto) 2.7 [place] # (Auto) 1.0 H Eos # (Auto) 0.2 Baso # (Auto) 0.02 Sodium 140 Potassium 3.8 Chloride 104 Carbon Dioxide 26 Anion Gap 13 BUN 9 Creatinine 1.0 Est GFR ( Amer) > 60 Est GFR (Non-Af Amer) > 60 Random Glucose 94 Hemoglobin A1c Calcium 9.2 Total Bilirubin 0.4 AST 32 ALT 28 Alkaline Phosphatase 66 Total Protein 7.6 Albumin 4.3 Globulin 3.3 Albumin/Globulin Ratio 1.3 Triglycerides Cholesterol LDL Cholesterol Direct HDL Cholesterol Free T4 TSH 3rd Generation Urine Color Urine Appearance Urine pH Ur Specific [place] Urine Protein Urine Glucose (UA) Urine Ketones Urine Blood Urine Nitrate Urine Bilirubin Urine Urobilinogen Ur Leukocyte Esterase Urine RBC Urine WBC Ur Epithelial Cells Urine Bacteria Salicylates < 1 L Urine Opiates Screen Urine Methadone Screen Acetaminophen < 10.0 L Ur Barbiturates Screen Ur Phencyclidine Scrn Ur Amphetamines Screen U Benzodiazepines Scrn U Oth Cocaine Metabols U Cannabinoids Screen Alcohol, Quantitative RPR 09/18/18 09/18/18 09/18/18 05:45 05:45 05:45 WBC RBC Hgb Hct MCV MCH MCHC RDW Plt Count MPV Gran % Lymph % (Auto) [place] % (Auto) Eos % (Auto) Baso % (Auto) Gran # Lymph # (Auto) [place] # (Auto) Eos # (Auto) Baso # (Auto) Sodium Potassium Chloride Carbon Dioxide Anion Gap BUN Creatinine Est GFR ( Amer) Est GFR (Non-Af Amer) Random Glucose Hemoglobin A1c 5.1 Calcium Total Bilirubin AST ALT Alkaline Phosphatase Total Protein Albumin Globulin Albumin/Globulin Ratio Triglycerides 38 Cholesterol 147 LDL Cholesterol Direct 95 HDL Cholesterol 47 Free T4 TSH 3rd Generation Urine Color Urine Appearance Urine pH Ur Specific [place] Urine Protein Urine Glucose (UA) Urine Ketones Urine Blood Urine Nitrate Urine Bilirubin Urine Urobilinogen Ur Leukocyte Esterase Urine RBC Urine WBC Ur Epithelial Cells Urine Bacteria Salicylates Urine Opiates Screen Urine Methadone Screen Acetaminophen Ur Barbiturates Screen Ur Phencyclidine Scrn Ur Amphetamines Screen U Benzodiazepines Scrn U Oth Cocaine Metabols U Cannabinoids Screen Alcohol, Quantitative < 10 RPR 09/18/18 09/18/18 09/19/18 08:10 08:10 07:00 WBC 6.1 D RBC 4.75 Hgb 13.4 L Hct 41.0 L MCV 86.3 MCH 28.2 MCHC 32.7 RDW 13.1 Plt Count 205 MPV 10.2 Gran % 51.8 Lymph % (Auto) 35.2 H [place] % (Auto) 8.5 H Eos % (Auto) 4.3 Baso % (Auto) 0.2 Gran # 3.16 Lymph # (Auto) 2.2 [place] # (Auto) 0.5 Eos # (Auto) 0.3 Baso # (Auto) 0.01 Sodium Potassium Chloride Carbon Dioxide Anion Gap BUN Creatinine Est GFR ( Amer) Est GFR (Non-Af Amer) Random Glucose Hemoglobin A1c Calcium Total Bilirubin AST ALT Alkaline Phosphatase Total Protein Albumin Globulin Albumin/Globulin Ratio Triglycerides Cholesterol LDL Cholesterol Direct HDL Cholesterol Free T4 TSH 3rd Generation Urine Color Yellow Urine Appearance Clear Urine pH 6.0 Ur Specific [place] 1.020 Urine Protein Negative Urine Glucose (UA) Negative Urine Ketones Negative Urine Blood Negative Urine Nitrate Negative Urine Bilirubin Negative Urine Urobilinogen 0.2 Ur Leukocyte Esterase Small H Urine RBC Negative Urine WBC 10 - 15 Ur Epithelial Cells 0 - 2 Urine Bacteria Few Salicylates Urine Opiates Screen Negative Urine Methadone Screen Negative Acetaminophen Ur Barbiturates Screen Negative Ur Phencyclidine Scrn Negative Ur Amphetamines Screen Negative U Benzodiazepines Scrn Negative U Oth Cocaine Metabols Negative U Cannabinoids Screen Negative Alcohol, Quantitative RPR 09/19/18 09/19/18 09/19/18 07:00 07:00 07:00 WBC RBC Hgb Hct MCV MCH MCHC RDW Plt Count MPV Gran % Lymph % (Auto) [place] % (Auto) Eos % (Auto) Baso % (Auto) Gran # Lymph # (Auto) [place] # (Auto) Eos # (Auto) Baso # (Auto) Sodium 139 Potassium 4.2 Chloride 105 Carbon Dioxide 26 Anion Gap 12 BUN 13 Creatinine 1.0 Est GFR ( Amer) > 60 Est GFR (Non-Af Amer) > 60 Random Glucose 102 Hemoglobin A1c Calcium 9.3 Total Bilirubin 0.4 AST 34 ALT 28 Alkaline Phosphatase 70 Total Protein 7.3 Albumin 4.1 Globulin 3.1 Albumin/Globulin Ratio 1.3 Triglycerides Cholesterol LDL Cholesterol Direct HDL Cholesterol Free T4 0.78 TSH 3rd Generation 0.99 Urine Color Urine Appearance Urine pH Ur Specific [place] Urine Protein Urine Glucose (UA) Urine Ketones Urine Blood Urine Nitrate Urine Bilirubin Urine Urobilinogen Ur Leukocyte Esterase Urine RBC Urine WBC Ur Epithelial Cells Urine Bacteria Salicylates Urine Opiates Screen Urine Methadone Screen Acetaminophen Ur Barbiturates Screen Ur Phencyclidine Scrn Ur Amphetamines Screen U Benzodiazepines Scrn U Oth Cocaine Metabols U Cannabinoids Screen Alcohol, Quantitative RPR Nonreactive Consultations:: List each consultation separately and include: 1. Reason for request. 2. Findings. 3. Follow-up Consultations: Consulted on by Dr. Crabtree on 09/19/18, 09/20/18, 09/21/18, 09/22/18, 09/23/18 Summary of Hospital Course include:: 1. Description of specific treatment plan utilized for patients during their course of treatmen. 2. Summarize the time- course for resolution of acute symptoms and/or regressed behaviors. 3. Describe issues identified and worked on during hospitalization. 4. Describe medication utilized. 5. Describe medical problems identified and treated. 6. Reassessment of suicide risk Summary of Hospital Course: DR. MILLER'S PROGRESS NOTE 09/22/18 Pt is well known to this life insurance underwriter/unit from the previous psych admission less than a month ago from 08/22/18-08/23/18. He was discharged AMA after submitting a 48 hour notice and found not committable by [facility]. Patient was given rx for risperdal 1 mg po TID and trazodone 50 mg HS. pt was seen today next to the nursing station, pt presented to be more organized, reported "to feel better, I am ready for discharge tomorrow". good personal hygiene, good ADLs. pt has some positive changes, pt smiled to this life insurance underwriter, thought process is better organized. pt reported that his anxiety "better", reported to have good appetite and sleep. impulses are well controlled. pt tolerates meds well, no side effects observed or reported. AIMS 0, no EPS. As per staff patient is in good behavioral control, attends meetings, no agitation, no aggression. DR. FIGUEROA'S DISCHARGE NOTE 09/23/18 I interviewed patient in the hallway continued stability for discharge. Patient is well groomed, alert and well-oriented to month, year and circumstances. Eye contact is good. Patient feels improved and denies any suicidal thoughts or thoughts to harm others. Affect is calm, pleasant, related and appropriately reactive. Patient denies hallucinations and is not responding to internal stimuli. Thought process is clear and coherent. Patient feels comfortable with discharge today and denies any new concerns. Denies acute discomfort or pain. Tolerating medications and denies any issues with them. Delusions and paranoia were not elicited on day of discharge. - Final Diagnosis (DSM 5) Condition upon Discharge: FAIR Disposition: HOME/ ROUTINE Follow-up Treatment Plan: * PLEASE REFER TO SW NOTE FOR AFTERCARE PLANS AND NURSING FOR RX GIVEN Laboratory Results - last 24 hr 09/18/18 09/19/18 09/19/18 05:45 07:00 07:00 WBC 6.1 D RBC 4.75 Hgb 13.4 L Hct 41.0 L MCV 86.3 MCH 28.2 MCHC 32.7 RDW 13.1 Plt Count 205 MPV 10.2 Gran % 51.8 Lymph % (Auto) 35.2 H [place] % (Auto) 8.5 H Eos % (Auto) 4.3 Baso % (Auto) 0.2 Gran # 3.16 Lymph # (Auto) 2.2 [place] # (Auto) 0.5 Eos # (Auto) 0.3 Baso # (Auto) 0.01 Sodium 139 Potassium 4.2 Chloride 105 Carbon Dioxide 26 Anion Gap 12 BUN 13 Creatinine 1.0 Est GFR ( Amer) > 60 Est GFR (Non-Af Amer) > 60 Random Glucose 102 Calcium 9.3 Total Bilirubin 0.4 AST 34 ALT 28 Alkaline Phosphatase 70 Total Protein 7.3 Albumin 4.1 Globulin 3.1 Albumin/Globulin Ratio 1.3 Triglycerides 38 Cholesterol 147 LDL Cholesterol Direct 95 HDL Cholesterol 47 Free T4 TSH 3rd Generation 09/19/18 07:00 WBC RBC Hgb Hct MCV MCH MCHC RDW Plt Count MPV Gran % Lymph % (Auto) [place] % (Auto) Eos % (Auto) Baso % (Auto) Gran # Lymph # (Auto) [place] # (Auto) Eos # (Auto) Baso # (Auto) Sodium Potassium Chloride Carbon Dioxide Anion Gap BUN Creatinine Est GFR ( Amer) Est GFR (Non-Af Amer) Random Glucose Calcium Total Bilirubin AST ALT Alkaline Phosphatase Total Protein Albumin Globulin Albumin/Globulin Ratio Triglycerides Cholesterol LDL Cholesterol Direct HDL Cholesterol Free T4 0.78 TSH 3rd Generation 0.99 ER LABS AND STUDIES NOTED BELOW PLEASE REFER TO DR. BEEBE'S ER REPORT FOR PHYSICAL EXAM AND FINDINGS INCLUDING ROS 09/18/18 05:45: Alcohol, Quantitative < 10 09/18/18 05:45: Salicylates < 1 L, Acetaminophen < 10.0 L 09/18/18 05:45: Sodium 140, Potassium 3.8, Chloride 104, Carbon Dioxide 26, Anion Gap 13, BUN 9, Creatinine 1.0, Est GFR ( Amer) > 60, Est GFR (Non- Af Amer) > 60, Random Glucose 94, Calcium 9.2, Total Bilirubin 0.4, AST 32, ALT 28, Alkaline Phosphatase 66, Total Protein 7.6, Albumin 4.3, Globulin 3.3, Albumin/Globulin Ratio 1.3 09/18/18 05:45: WBC 8.6, RBC 4.71, Hgb 13.7 L, Hct 39.9 L, MCV 84.7, MCH 29.1, MCHC 34.3, RDW 13.0, Plt Count 226, MPV 9.7, Gran % 54.2, Lymph % (Auto) 31.6, [place] % (Auto) 12.1 H, Eos % (Auto) 1.9, Baso % (Auto) 0.2, Gran # 4.68, Lymph # (Auto) 2.7, [place] # (Auto) 1.0 H, Eos # (Auto) 0.2, Baso # (Auto) 0.02 09/18/18 05:22 cxr reviwed from and not necessary to repeat for this psychiatric visit and not indicated for medical evaluation 09/18/18 06:20 patient is medically stable for psych eval, admit, transfer if needed EKG Interpretation 09/18/18 06:22 0602: sinus sean at 48 bpm, nml qrs, no acute sttw abn Prescriptions/Medication Reconciliation: Benztropine [Cogentin] 0.5 mg PO HS #14 tab buPROPion [Wellbutrin] 75 mg PO BID #30 tab hydrOXYzine Pamoate [Vistaril] 25 mg PO Q8 PRN #45 cap PRN Reason: Anxiety risperiDONE [RisperDAL Tab] 1 mg PO TID #45 tab traZODone [Desyrel] 50 mg PO HS #14 tab - Smoking Cessation Smoking Cessation Medication prescribed: No
== END 2018-09-23 12:32 | disposition home or self-care (01) | DRG 750 ==
LOC: ED 01:59 → ERH 10:45 → PSYC 13:08
PROVIDERS: ADMIT Psychiatry & Neurology Psychiatry; ATTEND Psychiatry & Neurology Psychiatry
DX: F20.9 Schizophrenia, unspecified (principal); F39 Unspecified mood [affective] disorder; I10 Essential (primary) hypertension; F32.9 Major depressive disorder, single episode, unspecified; G47.00 Insomnia, unspecified; F41.9 Anxiety disorder, unspecified; F17.210 Nicotine dependence, cigarettes, uncomplicated